=== PATIENT | female | born 1995 | race Two or more races ===

== ENCOUNTER 2025-08-01 17:05 | Emergency (ER) | payer MEDICAID, SELFPAY ==
[2025-08-01 17:15] VITALS: BP 137/82; PULSE 62; RESP 16; TEMP 37.1; O2SAT 99; BMI 22.9
--- NOTE | 2025-08-01 17:20 | XR_ITS ---
EXAMINATION: PA chest single view TECHNIQUE: 1. Upright PA chest single view Date and time: August 01, 2025, 1728 hours INDICATIONS: Chest pain today. FINDINGS: Normal heart size Lungs are clear. The osseous structures are intact IMPRESSION: No active disease
--- NOTE | 2025-08-01 17:20 | EKG_ITS ---
[facility] (Formerly [facility])[3] Test Date: 2025-08-01 Pat Name: PEPPER IVERSON Department: Room: - Gender: Female Compensation Programs Manager: : 1995 Requested By: Inocencio Palm Order Number: [id number] Reading MD: Inocencio Palm Measurements Intervals [place] Rate: 59 P: -9 AK: 192 QRS: 73 QRSD: 105 T: 47 QT: 408 QTc: 406 Interpretive Statements SINUS BRADYCARDIA No previous ECG available for comparison /store/[email or web address]/[id number]
[2025-08-01 17:47] LABS: Basophils # (Auto) 0.1 Thou/mm3 (0.0-0.2); Basophils % (Auto) 1 % (0-2.5); Eosinophils # (Auto) 0.3 Thou/mm3 (0.0-0.5); Eosinophils % (Auto) 4 % (0-10); Hematocrit 39.7 % (36.0-46.0); Hemoglobin 13.6 g/dL (12.0-16.0); Immature Granulocytes Auto 0.01 Thou/mm3 (0.00-0.00); Lymphocytes # (Auto) 3.0 Thou/mm3 (1.0-4.8); Lymphocytes % (Auto) 41 % (10-50); Mean Corpuscular HGB Conc 34.3 g/dl (31.0-37.0); Mean Corpuscular Hemoglobin 30.9 pg (25.0-35.0); Mean Corpuscular Volume 90 fL (80-100); Monocytes # (Auto) 0.6 Thou/mm3 (0.0-0.8); Monocytes % (Auto) 8 % (0-12); Neutrophils # (Auto) 3.3 Thou/mm3 (1.8-7.7); Neutrophils % (Auto) 46 % (37-80); Nucleated Red Blood Cell # 0.00 Thou/mm3 (0.00-0.00); Nucleated Red Blood Cell % 0 /100 WBC (0); Platelet Count 230 Thou/mm3 (140-440); RDW Standard Deviation 39.6 fL (36.4-46.3); Red Blood Count 4.40 Miln/mm3 (4.00-5.20); White Blood Count 7.2 Thou/mm3 (3.6-11.0)
[2025-08-01 18:03] LABS: D-Dimer < 250 ng/mL (<600)
[2025-08-01 18:08] LABS: Alanine Aminotransferase 15 U/L (10-49); Albumin, Serum 4.6 gm/dL (3.5-5.0); Albumin/Globulin Ratio 1.6 (1.2-2.2); Alkaline Phosphatase 61 U/L (46-116); Anion Gap 10 (7-16); Aspartate Amino Transferase 22 U/L (0-34); BUN/Creatinine Ratio 11 Ratio (12-20); Bilirubin,Total 0.3 mg/dL (0.3-1.2); Blood Urea Nitrogen 9 mg/dL (9-23); Calcium 9.3 mg/dL (8.3-10.6); Calcium (Corrected) 9.3 mg/dL (8.5-10.1); Carbon Dioxide 25.7 mMol/L (20.0-31.0); Chloride 105 mMol/L (98-107); Creatinine (Component) 0.8 mg/dL (0.6-1.3); Estimated Creatinine Clearance 93.4 mL/min (>60); Globulin 2.8 gm/dL (2.3-3.5); Glucose 100 mg/dL (74-106); Osmolality,Calculated 279 (275-295); Potassium 4.1 mMol/L (3.4-5.1); Sodium 141 mMol/L (136-145); Thyroid Stimulating Hormone 1.92 uIU/mL (0.55-4.78); Total Protein 7.4 gm/dL (5.7-8.2); Troponin I < 0.002 ng/mL (0.0-0.045); eGFR > 60 See Note
[2025-08-01 18:12] LABS: Collection Type, Urine Clean Catch
[2025-08-01 18:14] LABS: B-Type Natriuretic Peptide < 20 pg/mL (0-100)
[2025-08-01 18:15] LABS: Bilirubin,Urine Negative (Negative); Blood,Urine 1+ (Negative); Clarity,Urine Clear (Clear/Hazy); Color,Urine Colorless (Lt Yel-Yel); Glucose, Urine Negative (Negative); Ketones,Urine Negative (Negative); Leukocyte Esterase,Urine Negative (Negative); Nitrite,Urine Negative (Negative); PH,Urine 7.0 (5.0-7.0); Protein,Urine Negative (Neg - Trace); RBC,Urine 2 /hpf (0-3); Specific Gravity,Urine 1.008 (1.001-1.035); Squamous Epithelial Cell,Urine 1 /hpf (0-5); Urobilinogen,Urine Negative mg/dL (0.0-1.0); WBC,Urine < 1 /hpf (0-5)
[2025-08-01 18:24] LABS: HCG Qualitative,Urine Negative
[2025-08-01] MEDS: DEXAMETHASONE SOD PHOS INJ 10 MG/ML VIAL IM (18:53)
--- NOTE | 2025-08-01 19:11 | PD.EDSOB ---
ED SOB =RME/HPI General Chief Complaint: Shortness of Breath/Dyspnea Stated Complaint: Difficulty breathing pain on back Time Seen by Provider: 08/01/25 17:15 Arrival date/time: 08/01/25 17:05 This is a case of 40-year-old female with no medical history came into the emergency room due to productive cough for 3 days associated with pleuritic chest pain radiating to the mid back and shortness of breath denies any fever chills persistence of the symptoms this patient decided to start consulted in the mergency room Limitations: no limitations Related Data Previous Rx's ?Medication ?Instructions ?Recorded albuterol sulfate 90 mcg/actuation 2 puff inhalation Q4H PRN 08/01/25 aerosol inhaler (Ventolin HFA) shortness of breath or wheezing #8.5 grams azithromycin 250 mg tablet 250 mg PO QDAY 6 days #6 tabs 08/01/25 prednisone 20 mg tablet See Taper PO QDAY 5 days #5 tabs 08/01/25 promethazine-DM 6.25 mg-15 mg/5 mL 5 ml PO Q6H PRN cough #118 mL 08/01/25 oral syrup Allergies Allergy/AdvReac Type Severity Reaction Status Date / Time No Known Allergies Allergy Verified 08/01/25 17:08 Review of Systems Review of Systems Systems Reviewed: All systems reviewed, normal except as documented Constitutional Constitutional: Reports system reviewed and no additional complaints, except as documented and Reports as per HPI ENT Ears, Nose, Mouth, and Throat: Reports system reviewed and no additional complaints, except as documented and Reports as per HPI Cardiovascular Cardiovascular: Reports system reviewed and no additional complaints, except as documented and Reports as per HPI Respiratory Respiratory: Reports system reviewed and no additional complaints, except as documented and Reports as per HPI Neurologic Neurologic: Reports system reviewed and no additional complaints, except as documented and Reports as per HPI Past Medical History Social History SMOKING STATUS: Never smoker ED Exam General Limitations: Present no limitations General appearance: Present alert, in no apparent distress and other (Patient is awake alert oriented not in distress nontoxic looking well-hydrated well-nourished) Head Head exam: Present atraumatic, normocephalic and normal inspection Eye Eye exam: Present normal appearance, PERRL and EOMI ENT ENT exam: Present normal exam, normal oropharynx, mucous membranes moist and other (HEENT exam is normal and unremarkable) Neck Neck exam: Present normal inspection, full ROM and trachea midline; Absent tenderness, meningismus, lymphadenopathy or thyromegaly Chest Chest inspection: Present normal inspection and symmetric chest wall rise; Absent tenderness Respiratory Respiratory exam: Present normal lung sounds bilaterally and wheezes; Absent respiratory distress, stridor, accessory muscle use or prolonged expiratory phase Cardiovascular Cardiovascular exam: Present regular rate, normal rhythm, normal heart sounds and other; Absent bradycardia, tachycardia, irregular rhythm, systolic murmur, diastolic murmur or clicks Abdominal Exam Abdominal exam: Present soft and normal bowel sounds; Absent distention, tenderness, guarding, rebound, rigidity, diminished bowel sounds, hyperactive bowel sounds, hypoactive bowel sounds or organomegaly Extremities Exam Extremities exam: Present normal inspection and full ROM Back Exam Back exam: Present normal inspection and full ROM Neurological Exam Neurological exam: Present alert, oriented X3, CN II-XII intact and reflexes normal; Absent motor sensory deficit Psychiatric Psychiatric exam: Present normal affect and normal mood Skin Skin exam: Present warm, dry, intact, normal color and other (Excellent skin turgor) Course Quality Measures none Orders Category Date Time Status EKG (ED ONLY) *Do not use* NOW Care 08/01/25 17:20 Completed EKG (ED Only) Stat Exams 08/01/25 17:20 Draft XR chest 1V Stat Exams 08/01/25 17:20 Completed BNP [B-Type Natriuretic Peptide] Stat Lab 08/01/25 17:38 Completed CBC Stat Lab 08/01/25 17:38 Completed Comprehensive Metabolic Panel Stat Lab 08/01/25 17:38 Completed D-Dimer Stat Lab 08/01/25 17:38 Completed HCG Qualitative,Urine Stat Lab 08/01/25 17:50 Completed TSH [Thyroid Stimulating Hormone] Stat Lab 08/01/25 17:38 Completed Troponin I Stat Lab 08/01/25 17:38 Completed Urinalysis Stat Lab 08/01/25 17:50 Completed Albuterol/Ipratr Rt Fariha [Duoneb Rt Fariha] Med 08/01/25 18:36 Discontinued 3 ml INH X1 ONE Dexamethasone Inj [Decadron Inj] Med 08/01/25 18:36 Discontinued 10 mg IM X1 ONE Vital Signs Vital signs: Vital Signs Temperature 98.8 F 08/01/25 17:15 Pulse Rate 62 08/01/25 17:15 Respiratory Rate 16 08/01/25 17:15 Blood Pressure 137/82 H 08/01/25 17:15 Pulse Oximetry (%) 99 08/01/25 17:15 Oxygen Delivery Method Room Air 08/01/25 17:15 Oxygen saturation is 99% in room air Shortness of Breath / Dyspnea MDM Narrative MDM Narrative:: This is a case of 40-year-old female with no medical history came into the emergency room due to productive cough for 3 days associated with pleuritic chest pain radiating to the mid back and shortness of breath denies any fever chills persistence of the symptoms this patient decided to start consulted in the mergency room physical examination patient is awake alert oriented not in distress nontoxic looking well-hydrated well-nourished HEENT exam is normal and unremarkable lungs wheezing both lower lung field no crackles no rales no retraction no stridor heart normal rate regular rhythm no murmur the rest of the physical examination neurological exam is normal and unremarkable blood test showed no leukocytosis no anemia kidney and liver function is normal no electrolyte imbalance troponin is negative BNP is normal TSH is normal D-dimer is normal sinus rhythm on EKG chest x-ray is normal based on my physical examination and history patient chest pain is possible due to acute bronchitis thus patient was given breathing treatment and steroid after 1 hour patient was reassessed patient presents resolved patient's symptoms resolved thus patient will be discharged home in stable condition she was advised to follow-up with PCP to be referred to green feed attendant for chest pain for possible echocardiogram stress test and Holter monitor patient was discharged with azithromycin Ventolin inhaler cough medication and steroid patient was advised for any worsening symptoms or any emergent concerns she will return to the emergency room immediately or call 911 Patient was discharged with comfortable condition walking with stable gait. Patient verbalized no further complains explained diagnosis and answered patient question. Patient is comfortable with the proposed management plan including the need to follow up with his/her primary care physician and any specialist if applicable Discussed patient for any urgent condition or worsening sx, He/She needed to go to emergency room immediately or call 911. Patient acknowledge the responsibility to follow up as instructed and to monitor her/his symptoms. For any persistence of the symptoms for more than 3-5 days return precaution advised. Discussed the result of the test and was given printed discharge instruction Patient data External records reviewed:: [facility] previous records Clinical information provided by:: patient Social determinants that could affect healthcare access:: none Patient has the following chronic illnesses:: None How is presenting disease/condition affected by chronic disease/condition?: no chronic disease Evaluation data The following diagnostics were reviewed and interpreted by me:: lab results, radiology exam(s) and EKG tracing(s) Lab and/or radiology exams considered but not ordered:: Reviewed Interpretation Summary: Reviewed Medications / Prescriptions Medications or Prescriptions considered but not ordered:: Given Medication administrations:: Medication Administration History Discontinued Medications Albuterol/Ipratropium (Albuterol/Ipratropium (Duoneb) Rt Fariha 3 Ml Nebu) 3 ml INH X1 ONE Stop: 08/01/25 18:37 Dexamethasone Sodium Phosphate (Dexamethasone Sod Phos Inj 10 Mg/Ml Vial) 10 mg IM X1 ONE Stop: 08/01/25 18:37 Last Admin: 08/01/25 18:53 Dose: 10 mg Documented By: DAVID Given Consultations Consultation(s) initiated? (list below): No Diagnosis Shortness of Breath Differential Diagnosis: acute exacerbation of chronic obstructive airways disease, congestive heart failure, community acquired pneumonia, asthma with exacerbation, pulmonary embolism and other (Acute bronchitis) Most likely diagnosis given after review of the tests above:: Acute Admission Indicated Admission indicated?: not indicated Explain why admission is indicated or not indicated:: Not indicated Admission Request Was there a request for admission?: No Admission Attestation Admission request attestation: Not indicated Disposition Plan Disposition Plan: Discharge Discharge Attestation Discharge Attestation: The patient and all family members were given an opportunity to ask questions and understood the discharge instructions. Discharge instructions specifically effects, indications for sooner follow up or return to the emergency department, and the expected course of current diagnosis. Patient condition: Stable Discharge Plan Plan Patient Disposition: HOME (Self Care) Patient condition on transfer: Stable Prescriptions/Referrals Prescriptions/Med Rec: New azithromycin 250 mg tablet 250 mg PO QDAY 6 Days Qty: 6 0RF Rx Instructions: start on day 2 of therapy promethazine-DM 6.25-15 mg/5 mL syrup 5 ml PO Q6H PRN (Reason: cough) Qty: 118 0RF prednisone 20 mg tablet See Taper PO QDAY 5 Days Qty: 5 0RF Taper: Prednisone Taper 20 mg DAILY for 2 Days and 0 Hour 10 mg DAILY for 2 Days and 0 Hour 5 mg DAILY for 7 Days and 0 Hour albuterol sulfate [Ventolin HFA] 90 mcg/actuation HFA aerosol inhaler 2 puff inhalation Q4H PRN (Reason: shortness of breath or wheezing) Qty: 8.5 0RF Referrals: Dylan Sadler MD [Primary Care Provider, Family Practice] - In 1 week Problem List Clinical Impression: Chest pain of unknown etiology, Acute bronchitis Patient/Caregiver Discharge Instructions Education Materials: Acute Bronchitis, ED Chest Pain, Uncertain Cause Additional Instructions: Follow-up with your primary care physician in 2 days for reevaluation and to be referred to green feed attendant for further evaluation and treatment of chest pain for possible echocardiogram stress test and Holter monitor recurrence persistent worsening symptoms or any emergent concern call 911 or go to the nearest emergency room take your medication as directed finish the course of antibiotic keep hydrated Print Language: Spanish Stand Alone Forms: Allison Award Info., Patient Portal Info Letter PA/MALLORIE Supervising Physician PA/DOCUMENTATION CONSULTANT Supervising Physician: Dr. Charlene Schmitz
[2025-08-01 19:19] VITALS: PULSE 64; RESP 20; O2SAT 100
[2025-08-01] MEDS: ALBUTEROL/IPRATROPIUM (Duoneb) RT SOL 3 ML NEBU INH (19:19)
== END 2025-08-01 19:57 | disposition home or self-care (01) ==
PROVIDERS: Nurse Practitioner Family; Emergency Provider Family Medicine; PCP Family Medicine
DX: J02.9 Acute pharyngitis, unspecified (principal)
CPT/HCPCS: 36415; 71045; 80053; 81001; 81025; 83880; 84443; 84484; 85025; 85379; 93005; 94640; 96372; 99283; A9270; J1100